=== PATIENT | female | born 1980 | race American Indian/Alaskan Native ===

== ENCOUNTER 2016-06-08 21:35 | Emergency (ER) | payer OTHER ==
[2016-06-08 21:46] VITALS: BP 115/71
[2016-06-09] MEDS ORDERED: MOTRIN PO ONE (01:17)
--- NOTE | 2016-06-09 01:37 | Emergency Department Report ---
HPI - General Chief Complaint: Upper Respiratory Infection Time Seen by Provider: 06/09/16 01:16 - HPI HPI: 35-year-old -[place] female comes in with complaint of fever cough body aches headaches fever and chills 2 days. Patient admits to cough and nasal congestion or rhinorrhea. She denies any sore throat. She does report that she has tried Tylenol at home mucous relief as well as DayQuil without much relief. Patient has a past medical history of seizures she currently takes no medications. ED Past Medical Hx - Past Medical History Previous Medical History?: Yes Hx Seizures: Yes - Surgical History Past Surgical History?: No - Social History Smoking Status: Current Every Day Smoker Substance Use Type: Alcohol - Medications Home Medications: Home Medications Medication Instructions Recorded Confirmed Last Taken Type Cetirizine HCl [ZyrTEC] 10 mg PO QDAY #30 capsule 06/09/16 Unknown Rx Fluticasone [Flonase] 1 spray NS QDAY #1 bottle 06/09/16 Unknown Rx Ibuprofen [Motrin 800 MG tab] 800 mg PO Q8HR PRN #30 tablet 06/09/16 Unknown Rx Promethazine /Codeine 5 ml PO Q6H PRN #100 ml 06/09/16 Unknown Rx [Phenergan/Codeine 6.25-10 mg/5 ml] ED Review of Systems ROS: Stated complaint: CHILLS, FEVER, SHORTNESS OF BREATH Other details as noted in HPI Physical Exam - Physical Exam Vital Signs: Vital Signs 06/08/16 06/09/16 21:44 01:29 Temperature 99.4 F Pulse Rate 104 H Respiratory 16 18 Rate Blood Pressure 115/71 O2 Sat by Pulse 98 Oximetry General: GENERAL: Alert and oriented x3, no apparent distress, Normal Gait, atraumatic. HEAD: Head is normocephalic and a-traumatic. EYES: Extra ocular muscles are intact. Pupils are equal, round, and reactive to light and accommodation. EARS: symetrical, atraumatic, non tender, ear canal clear and moderate cerumen, tympanic membrance non inflamed. gross auditory nml bilaterally. NOSE: Nose symetrical, Nontender,Nares appeared normal. MOUTH:Mouth is well hydrated and without lesions. Tonsils nonerythematous or swollen, Uvula midline, Tongue not elevated. Mucous membranes are moist. Posterior pharynx clear, no exudate or lesions. Patent airways. NECK: Supple. Non edematous, No carotid bruits. No lymphadenopathy or thyromegaly. LUNGS: Symetrical with respiration, No wheezing, no rales or crackles, CTAB. HEART: S1, S2 present, regular rate and rhythm without murmur, no rubs, no gallops. ABDOMEN: No organomegaly was noted,Positive bowel sounds, soft, and non- distended. . Nontender to palpation on all Quadrants, NO CVA tenderness. EXTREMITIES/MUSCULOSKELETAL: No cyanosis, clubbing, rash, lesions or edema. Full ROM bilaterally. UE/LE Pulses 2+ bilaterally. LE and UE 5+ strength bilaterally NEUROLOGIC: No focal Deficit, Cranial nerves II through XII are grossly intact. No loss of sensation, No facial droop, PSYCHIATRIC: Mood is congruent with affect, SKIN: Warm and dry, No lesions, No ulceration or induration present ED Course Vital Signs 06/08/16 06/09/16 21:44 01:29 Temperature 99.4 F Pulse Rate 104 H Respiratory 16 18 Rate Blood Pressure 115/71 O2 Sat by Pulse 98 Oximetry - Reevaluation(s) Reevaluation #1: 06/09/16 02:41 Patient reports she feels better with having the ibuprofen. ED Medical Decision Making - Medical Decision Making Been evaluated by this provider fast track. We'll send out a influenza tests. We will give patient ibuprofen 800 mg. Discussed with patient that her influenza test came back negative. We will treat patient's symptoms. Patient verbalized understanding Critical care attestation.: If time is entered above; I have spent that time in minutes in the direct care of this critically ill patient, excluding procedure time. ED Disposition Clinical Impression: Seasonal allergies Qualifiers: Allergic rhinitis trigger: unspecified Qualified Code(s): J30.2 - Other seasonal allergic rhinitis Disposition: DISCHARGED TO HOME OR SELFCARE Is pt being admited?: No Does the pt Need Aspirin: No Condition: Stable Instructions: Allergies (ED) Additional Instructions: Your flu test was negative. Take the promethazine with codeine for your cough Zyrtec and Flonase for your allergies. Motrin take for your body aches and headache. If symptoms persist or do not improve please follow up with her primary care provider. Prescriptions: Cetirizine HCl [ZyrTEC] 10 mg PO QDAY #30 capsule Fluticasone [Flonase] 1 spray NS QDAY #1 bottle Ibuprofen [Motrin 800 MG tab] 800 mg PO Q8HR PRN #30 tablet PRN Reason: Pain Promethazine /Codeine [Phenergan/Codeine 6.25-10 mg/5 ml] 5 ml PO Q6H PRN #100 ml PRN Reason: cough Referrals: PRIMARY CARE, [Primary Care Provider] - 3-5 Days Forms: Work/School Release Form(ED), Accompanied Note
== END 2016-06-09 02:57 | disposition home or self-care (01) ==
LOC: ED 21:35
DX: J30.2 Other seasonal allergic rhinitis (principal); R56.9 Unspecified convulsions; F17.200 Nicotine dependence, unspecified, uncomplicated
CPT/HCPCS: 87400; 99282

== ENCOUNTER 2016-12-14 06:18 | Emergency (ER) | payer SELFPAY ==
[2016-12-14 06:37] VITALS: BP 139/71
[2016-12-14 07:11] LABS: Basophils % (Auto) 0.3 % (0.0-1.8); Eosinophils % (Auto) 0.2 % (0.0-4.3); Hematocrit 35.6 % (30.3-42.9); Mean Corpuscular HGB Conc 34 % (30-34); Mean Corpuscular Hemoglobin 30 pg (28-32); Mean Corpuscular Volume 88 fl (79-97); Platelet Count 225 K/mm3 (140-440); Red Blood Count 4.04 M/mm3 (3.65-5.03); Red Cell Distribution Width 15.5 % (13.2-15.2); White Blood Count 11.2 K/mm3 (4.5-11.0)
[2016-12-14 07:33] LABS: Alanine Aminotransferase 9 units/L (7-56); Albumin 4.2 g/dL (3.9-5); Albumin/Globulin Ratio 1.2 %; Alkaline Phosphatase 66 units/L (35-129); Anion Gap 18 mmol/L; BUN/Creatinine Ratio 14; Blood Urea Nitrogen 10 mg/dL (7-17); Calcium 9.4 mg/dL (8.4-10.2); Carbon Dioxide 25 mmol/L (22-30); Chloride 100.9 mmol/L (98-107); Glucose 111 mg/dL (65-100); Lipase 16 units/L (13-60); Sodium 140 mmol/L (137-145); Total Protein 7.8 g/dL (6.3-8.2)
[2016-12-14 08:07] LABS: Bacteria,Urine 1+ /HPF (Negative); Bilirubin,Urine NEG (Negative); Blood,Urine SM (Negative); Ketones,Urine 20 mg/dL (Negative); Leukocyte Esterase,Urine TR (Negative); Mucus,Urine 3+ /HPF; Nitrite,Urine NEG (Negative)
== END 2016-12-14 06:42 | disposition left against medical advice (07) ==
LOC: ED 06:18
DX: M79.1 Myalgia (principal)
CPT/HCPCS: 36415; 80053; 81001; 83690; 85025